=== PATIENT | female | born 1975 ===

== ENCOUNTER 2023-07-21 15:44 | Emergency (ER) | payer OTHER, SELFPAY ==
--- NOTE | 2023-07-21 | ECG_ITS ---
Test Reason : CX PAIN Blood Pressure : / mmHG Vent. Rate : 118 BPM Atrial Rate : 118 BPM P-R Int : 150 ms QRS Dur : 072 ms QT Int : 308 ms P-R-T Axes : 050 034 051 degrees QTc Int : 431 ms Sinus tachycardia Nonspecific T wave abnormality Abnormal ECG No previous ECGs available Referred By: Generic ED Physician Electronically Signed By:Bari Casey
--- NOTE | ~2023-07-21 | CT_ITS ---
EXAMINATION: CT ANGIOGRAM OF THE CHEST; CONTRAST-ENHANCED CT OF THE ABDOMEN AND PELVIS INDICATION: History of lymphoma, weight loss, fever, chest pain, shortness of breath COMPARISON: None TECHNIQUE: 85 mL Omnipaque 350 IV contrast was utilized. Multidetector helical imaging was performed through the chest per PE protocol. Coronal, sagittal, and MIP images of the chest were created. In addition, multidetector helical imaging was performed through the abdomen and pelvis. Coronal and sagittal reformatted images were created at the technologist workstation. DOSE LOWERING TECHNIQUES: This CT examination was performed using dose optimization techniques as appropriate, variously including the following: - Automated exposure control - Adjustment of mA and/or kV according to patient size (this includes techniques or standardized protocols for targeted exams were dose is matched to indication/reason for exam; i.e. extremities or head) - Use of iterative reconstruction technique DLP: 532 mGy-cm FINDINGS: Chest: There is suboptimal assessment for pulmonary emboli in some vessels due to suboptimal bolus timing. No central or segmental pulmonary embolus is seen. Aorta appears unremarkable. There is a 5 mm nodule in the left upper lobe on image 275/501. There is a somewhat irregularly-shaped nodule in the right lower lobe measuring up to approximately 6 mm on image 404/501. No regions of consolidation bilaterally. The visualized thyroid gland is unremarkable. No discrete lymphadenopathy is seen. Cardiac size is within normal limits; no pericardial effusion. No axillary lymphadenopathy is present. Abdomen/Pelvis: The liver is homogeneous in attenuation without intrahepatic biliary ductal dilatation. The gallbladder is distended without appreciable wall thickening. Scattered internal hyperdensities in the gallbladder favor gallstones. The spleen appears borderline enlarged. Pancreas and adrenal glands are within normal limits. No hydronephrosis or obstructing calculus bilaterally. There is a 0.3 cm calculus in the upper left kidney. Few bilateral renal cysts are noted, largest in the right kidney measuring up to approximately 10 cm; no follow-up recommended. The urinary bladder is mildly distended and grossly unremarkable. There is a cystic structure in the left adnexa measuring up to 5.6 cm. The small and large bowel are unremarkable without evidence of obstruction or pericolonic inflammatory change. Appendix appears collapsed, containing a couple appendicoliths. No free fluid or free air is identified. The vascular structures are unremarkable. Scattered mesenteric and retroperitoneal lymph nodes are present, a few of which measure near the upper limits of normal in size. No acute osseous findings. CT/CT abdomen pelvis w IV con IMPRESSION: 1. No central or segmental pulmonary embolus identified. 2. Cholelithiasis. If there is clinical concern for cholecystitis, this would be better assessed with ultrasound. 3. Left adnexal cystic structure measuring up to 5.6 cm. Findings likely represent a probable benign cyst. Recommend followup ultrasonography in 3-6 months. 4. Left upper lobe 5 mm lung nodule and right lower lobe 6 mm nodule. These are nonspecific, and no prior study is available for comparison. If chronic stability cannot be established through comparison with outside prior imaging, follow-up chest CT in 3-6 months is recommended. 5. Borderline splenomegaly. 6. Scattered mesenteric and retroperitoneal lymph nodes, a few of which measure near the upper limits of normal in size. These are of uncertain clinical significance given the patient's history of lymphoma and absence of prior studies for comparison. Attention on follow-up is recommended.
--- NOTE | ~2023-07-21 | XR_ITS ---
EXAMINATION: XR CHEST CLINICAL INFORMATION: Cough, chest pain COMPARISON: None available. TECHNIQUE: 2 views of the chest were obtained. 4:15 PM FINDINGS: The lungs are well expanded and clear. No focal consolidation, interstitial pulmonary edema or pneumothorax. Extensive calcification in the right paratracheal region and right hilar region is related to old calcified granulomatous disease. Heart size is normal. There is no pleural effusion. No acute osseous abnormality. XR/XR chest 2V IMPRESSION: No acute cardiopulmonary disease.
[2023-07-21 16:02] VITALS: BP 129/80; PULSE 118; RESP 16; TEMP 36.3; O2SAT 100; BMI 29.8
--- NOTE | 2023-07-21 16:04 | ED.GENADULT ---
HPI - General Adult General Chief complaint: Chest Pain Stated complaint: Chest pain/difficulty breathing Time Seen by Provider: 07/21/23 23:49 Source: patient and bell valet Mode of arrival: ambulatory Limitations: language barrier History of Present Illness HPI narrative: 47-year-old female with a history of non-Hodgkin's lymphoma status post chemotherapy currently in remission (diagnosed in 2007 in [place]) presents the ER with 1 month of fatigue, URI symptoms, intermittent fever, night sweats, weight loss. Patient reports 14 lb weight loss. Patient does not have a primary care doctor. Went to urgent care 2 weeks ago had negative viral testing and chest x-ray discharged home with supportive measures. Reports continued symptoms now having chest pressure, palpitations and shortness of breath. No leg swelling or leg pain. Related Data Previous Rx's Medication Instructions Recorded codeine 10 mg-guaifenesin 100 mg/5 10 ml PO Q6H PRN cough #237 mL 07/22/23 mL oral liquid Allergies Allergy/AdvReac Type Severity Reaction Status Date / Time No Known Allergies Allergy Verified 07/21/23 16:02 Review of Systems Review of Systems: Yes all other systems are reviewed and are negative Constitutional: Constitutional: Reports no additional constitutional complaints, Reports body ache(s), Denies chills, Reports fatigue, Reports fever(s), Denies headache(s), Reports night sweats, Denies weakness and Reports weight loss Eyes: Eyes: Reports no additional eye complaints and Denies change in vision ENT: Reports system reviewed and no additional complaints, except as documented, Denies dizziness, Denies headache(s), Reports nasal congestion, Denies nasal discharge, Denies neck pain and Reports sore throat Cardiovascular: Cardiovascular: Reports no additional cardiovascular complaints, Reports chest pain, Denies leg edema and Reports dyspnea Respiratory: Respiratory: Reports no additional respiratory complaints, Reports cough and Reports dyspnea Gastrointestinal: Gastrointestinal: Reports no additional gastrointestinal complaints, Denies abdominal pain, Denies diarrhea, Reports nausea and Denies vomiting Genitourinary: Genitourinary: Reports no additional female genitourinary complaints and Denies urinary incontinence Musculoskeletal: Musculoskeletal: Reports no additional musculoskeletal complaints, Denies back pain, Denies arthralgias, Denies joint swelling, Denies neck pain, Denies numbness and Denies tingling Integumentary/Breasts: Skin/Breast: Reports system reviewed and no additional complaints, except as docu and Denies rash Neurologic: Reports system reviewed and no additional complaints, except as documented, Denies Abnormal speech present, Denies dizziness, Denies headache(s), Denies numbness, Denies tingling and Denies weakness Endocrine: Endocrine: Reports fatigue [facility] Past Medical History Attestation statement: The following information was validated with the patient. Source: old records reviewed and nursing notes reviewed Social History Social History Smoked in Last 30 Days: No Advance Directives: No Advance Directives Information Provided: Yes Patient : No Physical Exam ED Vital Signs: Vital Signs - 24 hr 07/21/23 16:02 07/21/23 23:52 07/22/23 02:51 Temperature 97.4 F 97.9 F 98.0 F Pulse Rate 118 H 113 H 75 Respiratory Rate 16 16 16 Blood Pressure 129/80 134/68 96/61 Pulse Oximetry 100 98 98 Oxygen Delivery Method Room Air Room Air Room Air BMI result Body Mass Index 29.8 Const General: cooperative, healthy appearing, comfortable and no acute distress Orientation/consciousness: patient oriented x3 Limitations: no limitations HENMT Head: Yes normal to inspection Ears: hearing grossly normal bilaterally and TM's normal bilaterally General nose exam: Normal external nose present Face and sinus: Yes normal facial exam Mouth: Normal oral and palatal mucosa present Throat: Yes posterior oropharynx normal, Yes tonsils normal and Yes uvula midline Eyes Other: Scleral icterus General: appearance normal, both eyes and all related structures Pupils: Equal, round and reactive pupils present Neck Neck: Yes normal visual inspection, Yes full ROM, Yes no lymphadenopathy and Yes no meningeal signs Chest Chest palpation & inspection: normal inspection of the chest Resp Effort & Inspection: normal respiratory effort Auscultation: clear to auscultation bilaterally Cardio Rate: tachycardic Rhythm: regular rhythm Peripheral pulses: Peripheral pulses 2+ throughout GI Inspection: Yes normal to inspection Palpation (GI): Soft to palpation and nontender Auscultation: normal bowel sounds Back/Spine/Pelvis Thoracic/Lumbar Spine: thoracic and lumbar spine normal to inspection Skin General skin exam: no rashes or lesions noted Neuro General: patient oriented x3, no meningeal signs, no focal motor deficits and normal sensation to monofilament Cranial nerves: Yes Equal, round and reactive pupils present Cognition (Neuro): normal cognition Speech: No Abnormal speech present Gait exam (Neuro): Normal gait present Motor exam (neuro): 5/5 motor strength present throughout Extrem General: Yes normal to inspection, Yes no pedal edema and Yes no calf tenderness Course Course Course Narrative: RME performed by Cathryn Boyle PA-C. Patient is a 47 year old assigned female at presenting to the emergency department with congestion and chest pain x 1 week. Detailed physical exam and review of systems are deferred to the dentistry professor. Labs, imaging, and swabs ordered. Patient placed back in the waiting room pending room availability and results. Reevaluation(s) Reevaluation #1: [id number]-Sign out to Dr Kelly pending CT scans Medications Administered Discontinued Medications Generic Name Dose Route Start Last Admin Trade Name Freq PRN Reason Stop Dose Admin Sodium Chloride 1,000 mls @ 999 mls/hr 07/22/23 00:13 07/22/23 01:55 Ns IV 07/22/23 01:13 Infused .Q1H1M STA Infusion Iohexol 85 ml 07/22/23 01:03 07/22/23 01:03 Iohexol 350 Mg/Ml 100 Ml Infus..Btl IV 07/22/23 01:04 85 ml ONCE ONE Administration Medical Decision Making Medical Decision Making [facility] Narrative: 47-year-old female with a history of non-Hodgkin's lymphoma status post chemotherapy currently in remission (diagnosed in 2007 in [place]) presents the ER with 1 month of fatigue, URI symptoms, intermittent fever, night sweats, weight loss. Patient reports 14 lb weight loss. Patient does not have a primary care doctor. Went to urgent care 2 weeks ago had negative viral testing and chest x-ray discharged home with supportive measures. Reports continued symptoms now having chest pressure, palpitations and shortness of breath. No leg swelling or leg pain. On exam has scleral icterus, tachycardia but no other focal finding. D/t history I am concerned for reoccurrence of disease Will need labs, EKG, viral testing Had CXR in triage-will need CT chest/abdomen/pelvis Differential Diagnosis Differential Diagnoses: The differential diagnosis associated with the presentation includes lymphoma, pna, viral syndrome, pe low concern for acs Admission/Observation Consideration of admission/observation: Escalation of care including admission/observation considered Lab Data [facility] Lab Attestation statement: I reviewed the patient's lab results. Labs show a macrocytic anemia, elevated total bili 07/21/23 16:01 07/21/23 16:01 Labs: Lab Results 07/21/23 Range/Units 16:01 WBC 11.0 H (4.8-10.8) X10*3/uL RBC 2.22 L (4.20-5.50) X10*6/uL Hgb 7.9 L (12.0-16.0) g/dl Hct 22.8 L (37.0-47.0) % MCV 102.7 H (80.0-98.0) fL MCH 35.6 H (27.0-33.0) pg MCHC 34.6 (31.0-35.0) g/dl RDW 20.9 H (11.0-16.0) % Plt Count 379 (160-400) X10*3/uL MPV 10.1 (9.4-12.3) fL Immature Gran % (Auto) 3.1 H (0.0-0.4) % Neut % (Auto) 64.4 (45-73) % Lymph % (Auto) 22.6 (20-40) % [place] % (Auto) 7.5 (2-11) % Eos % (Auto) 1.4 (0-4) % Baso % (Auto) 1.0 (0-2) % Lymph # (Auto) 2.5 (1.2-4.9) X10*3/uL [place] # (Auto) 0.8 (0.1-1.2) X10*3/uL Eos # (Auto) 0.2 (0.0-0.4) X10*3/uL Baso # (Auto) 0.1 (0.0-0.2) X10*3/uL Abs Immat Gran (auto) 0.34 H (0.00-0.03) X10*3/uL Absolute Neuts (auto) 7.1 (2.0-8.3) x10*3/uL Absolute Nucleated RBC 0.110 H (0.0-0.012) X10*3/uL Nucleated RBC % (auto) 1.0 H (0.0-0.2) /100WBC Sodium 142 (135-145) mmol/L Potassium 3.6 (3.3-5.1) mmol/L Chloride 107 (96-108) mmol/L Carbon Dioxide 27 (22-29) mmol/L Anion Gap 12 (12-20) BUN 16 (9-16) mg/dL Creatinine 0.69 (0.5-1.4) mg/dL Estim Creat Clear Calc 93.8 Estimated GFR > 60 Random Glucose 94 (60-115) mg/dL Calcium 9.2 (8.4-10.2) mg/dL Total Bilirubin 3.6 H (0.0-1.0) mg/dL AST 15 (5-31) U/L ALT 26 (0-31) U/L Alkaline Phosphatase 105 (39-117) U/L Troponin I High Sens < 2.7 (<3.5-17.0) ng/L Total Protein 6.3 L (6.5-8.0) g/dL Albumin 4.2 (3.5-5.0) g/dL COVID-19 (FANNY) Negative (Negative) COVID-19 Clin Com See Note Influenza Type A (HANNA) Negative (Negative) Influenza Type B (HANNA) Negative (Negative) Influenza A & B Note See Note Independent Interpretation I performed an independent interpretation of an: EKG, Plain X-Ray and CT Scan Interpretation: I independently reviewed the EKG which shows sinus tachycardia with a rate of 118, normal [place], normal QRS, nonspecific ST changes I independently reviewed the chest x-ray and agree with the radiologist's Radiology Impression Discussion of test interpretation with radiology: I have reviewed the radiologist's reading. Radiologist Impression: [place] [id number] XRay Report Signed Patient: FILOMENA ESTRADA MR#: [id number] : 1975 Acct:[id number] Age/Sex: 47 / F ADM Date: 07/21/23 Loc: .ED Attending Dr: Ordering Physician: Cathryn Boyle Date of Service: 07/21/23 Procedure(s): XR chest 2V Accession Number(s): [id number] cc: Monster Lara MD; Cathryn Boyle~ EXAMINATION: XR CHEST CLINICAL INFORMATION: Cough, chest pain COMPARISON: None available. TECHNIQUE: 2 views of the chest were obtained. 4:15 PM FINDINGS: The lungs are well expanded and clear. No focal consolidation, interstitial pulmonary edema or pneumothorax. Extensive calcification in the right paratracheal region and right hilar region is related to old calcified granulomatous disease. Heart size is normal. There is no pleural effusion. No acute osseous abnormality. XR/XR chest 2V IMPRESSION: No acute cardiopulmonary disease. Prescription Management I considered prescription management with: Antibiotic Chronic Conditions Patient?s care impacted by: Cancer Discharge Plan Discharge Clinical Impression: Chest pain, Chronic bronchitis Patient Disposition: Home, Self-Care Instructions: Chronic Bronchitis (ED), Chest Wall Pain (ED) Additional Instructions: Take cough syrup as prescribed You have left ovarian cyst follow-up with your PCP You have anemia follow with your PCP for further evaluation Prescriptions: New codeine-guaifenesin 10-100 mg/5 mL liquid 10 ml PO Q6H PRN (Reason: cough) Qty: 237 0RF Referrals: Monster Lara MD [Primary Care Provider] - 5 days Print Language: Cook Islander
[2023-07-21 16:07] LABS: MANUAL DIFF FLAG NO
[2023-07-21 16:25] LABS: Alanine Aminotransferase 26 U/L (0-31); Albumin Level 4.2 g/dL (3.5-5.0); Alkaline Phosphatase 105 U/L (39-117); Anion Gap 12 (12-20); Aspartate Amino Transferase 15 U/L (5-31); Bilirubin Total 3.6 mg/dL (0.0-1.0); Blood Urea Nitrogen 16 mg/dL (9-16); Calcium 9.2 mg/dL (8.4-10.2); Carbon Dioxide 27 mmol/L (22-29); Chloride 107 mmol/L (96-108); Creatinine Clr Calc Pharmacy 93.8; Estimated Glomerular Filt Rate > 60; Glucose Random 94 mg/dL (60-115); Potassium 3.6 mmol/L (3.3-5.1); Sodium 142 mmol/L (135-145); Total Protein 6.3 g/dL (6.5-8.0)
[2023-07-21 16:28] LABS: Basophils Absolute Auto 0.1 X10*3/uL (0.0-0.2); Eosinophils Absolute Auto 0.2 X10*3/uL (0.0-0.4); Eosinophils Percent Auto 1.4 % (0-4); Hematocrit 22.8 % (37.0-47.0); Hemoglobin 7.9 g/dl (12.0-16.0); Imm Gran Abs Auto 0.34 X10*3/uL (0.00-0.03); Imm Gran Pct Auto 3.1 % (0.0-0.4); Lymphocytes Absolute Auto 2.5 X10*3/uL (1.2-4.9); Lymphocytes Percent Auto 22.6 % (20-40); Mean Corpuscular HGB Conc 34.6 g/dl (31.0-35.0); Mean Corpuscular Hemoglobin 35.6 pg (27.0-33.0); Mean Corpuscular Volume 102.7 fL (80.0-98.0); Mean Platelet Volume 10.1 fL (9.4-12.3); Monocytes Absolute Auto 0.8 X10*3/uL (0.1-1.2); Monocytes Percent Auto 7.5 % (2-11); Neutrophils Absolute Auto 7.1 x10*3/uL (2.0-8.3); Neutrophils Percent Auto 64.4 % (45-73); Platelet Count 379 X10*3/uL (160-400); Red Blood Count 2.22 X10*6/uL (4.20-5.50); Red Cell Distribution Width 20.9 % (11.0-16.0)
[2023-07-21 16:29] LABS: IDNOW Serial# 9DB6401D; Influenza A Negative (Negative); Influenza B2 Negative (Negative)
[2023-07-21 16:33] LABS: COVID-19 Test Negative (Negative); IDNOW Serial# 58CA691E
[2023-07-21 16:36] LABS: Troponin-I High Sensitivity < 2.7 ng/L (<3.5-17.0)
[2023-07-21 23:52] VITALS: BP 134/68; PULSE 113; RESP 16; TEMP 36.6; O2SAT 98
[2023-07-22] MEDS: 0.9 % Sodium Chloride 1,000 ML 999 ML IV (00:20)
[2023-07-22] MEDS: iohexoL 350 MG/ML 100 ML INFUS..BTL 85 ML IV (01:03)
[2023-07-22 02:51] VITALS: BP 96/61; PULSE 75; RESP 16; TEMP 36.7; O2SAT 98
[2023-07-22] MEDS: guaiFEN/Codeine SF 200/20/10ML 10 ML LIQUID PO (03:50)
== END 2023-07-22 03:56 | disposition home or self-care (01) ==
PROVIDERS: Internal Medicine; Emergency Provider Emergency Medicine; PCP Internal Medicine
DX: J42 Unspecified chronic bronchitis (principal); R07.9 Chest pain, unspecified; Z11.52 Encounter for screening for COVID-19; D64.9 Anemia, unspecified; R63.4 Abnormal weight loss; Z68.29 Body mass index [BMI] 29.0-29.9, adult
CPT/HCPCS: 71046; 71275; 74177; 80053; 84484; 85025; 87502; 87635; 93005; 96360; 96361; 99284; 99285; Q9967

== ENCOUNTER → 2023-07-21 15:55 | Outpatient (BNV) | payer OTHER, SELFPAY | PROVIDERS: Emergency Provider Emergency Medicine; PCP Internal Medicine; Visit Provider Internal Medicine Cardiovascular Disease | DX: R07.9 Chest pain, unspecified (principal) | CPT/HCPCS: 93010 ==

== ENCOUNTER 2023-07-28 14:07 | Outpatient (REF) | payer MEDICAID, SELFPAY ==
[2023-07-28 16:10] LABS: Retic HGB Equivalent 36.5 pg (30.0-35.0); Reticulocytes Absolute 0.293 X10*6/uL (0.026-0.095)
[2023-07-28 16:24] LABS: Rheumatoid Factor < 13.0 IU/mL (<15.0)
[2023-07-28 16:26] LABS: RET ABN SCTR 1
[2023-07-28 16:33] LABS: Alanine Aminotransferase 17 U/L (0-31); Albumin Level 4.2 g/dL (3.5-5.0); Alkaline Phosphatase 95 U/L (39-117); Aspartate Amino Transferase 15 U/L (5-31); Bilirubin Direct 0.5 mg/dL (0.0-0.5); Bilirubin Total 2.1 mg/dL (0.0-1.0); Iron 74 mcg/dL (30-160); Lactate Dehydrogenase 403 U/L (122-220); Percent Iron Saturation 27 % (15-50); Total Iron Binding Capacity 273 mcg/dL (228-428); Total Protein 6.3 g/dL (6.5-8.0); Unsaturated Iron Binding 199 ug/dL
[2023-07-28 16:40] LABS: Ferritin 603 ng/mL (10-250)
[2023-07-28 16:42] LABS: Erythrocyte Sedimentation Rate 36 MM/HR (0-20)
[2023-07-28 16:52] LABS: Folate 9.2 ng/mL (> or = 4.0); Vitamin B12 966 pg/mL (200-900)
[2023-07-29 04:08] LABS: HBc Num1 0.05 S/CO (0.00-0.79); HBsAGNum1 0.31 S/CO (0.00-0.99); Hepatitis A Antibody IgM 0.13 Index (0-0.79); Hepatitis B Core Antibody Nonreactive (Nonreactive); Hepatitis B Surface Antigen Negative (Negative); ~Hepatitis A Antibody IgM Nonreactive (Nonreactive)
[2023-07-29 05:49] LABS: HBS Num1 0.03 mIU/mL (0-7.99); HIV AB/AG Nonreactive (Nonreactive); HIV Num 1 0.06 S/CO (0.00-0.99); ~HepC Num1 0.03 S/CO (0.00-0.79); ~Hepatitis B Surface Antibody NONREACTIVE (Nonreactive); ~Hepatitis C Antibody Nonreactive (Nonreactive)
[2023-08-03 08:44] LABS: Anti Nuclear Antibody Screen NEGATIVE (NEGATIVE)
== END 2023-07-28 14:08 | disposition home or self-care (01) ==
LOC: HO.HHCL 14:07
PROVIDERS: Visit Provider Internal Medicine
DX: D64.9 Anemia, unspecified (principal); R59.0 Localized enlarged lymph nodes
CPT/HCPCS: 36415; 80076; 82607; 82728; 82746; 83540; 83615; 85045; 85652; 86038; 86431; 86704; 86706; 86709; 86803; 87340; 87389

== ENCOUNTER 2023-08-04 15:27 | Outpatient (REF) | payer MEDICAID, SELFPAY ==
[2023-08-04 16:19] LABS: MANUAL DIFF FLAG NO
[2023-08-04 16:59] LABS: Basophils Absolute Auto 0.1 X10*3/uL (0.0-0.2); Basophils Percent Auto 1.5 % (0-2); Eosinophils Absolute Auto 0.1 X10*3/uL (0.0-0.4); Eosinophils Percent Auto 2.1 % (0-4); Hematocrit 26.3 % (37.0-47.0); Imm Gran Abs Auto 0.02 X10*3/uL (0.00-0.03); Imm Gran Pct Auto 0.4 % (0.0-0.4); Lymphocytes Absolute Auto 1.7 X10*3/uL (1.2-4.9); Mean Corpuscular HGB Conc 34.2 g/dl (31.0-35.0); Mean Corpuscular Hemoglobin 37.2 pg (27.0-33.0); Mean Corpuscular Volume 108.7 fL (80.0-98.0); Mean Platelet Volume 10.8 fL (9.4-12.3); Monocytes Absolute Auto 0.5 X10*3/uL (0.1-1.2); Neutrophils Absolute Auto 2.5 x10*3/uL (2.0-8.3); Platelet Count 244 X10*3/uL (160-400); Red Blood Count 2.42 X10*6/uL (4.20-5.50); Red Cell Distribution Width 19.5 % (11.0-16.0); White Blood Count 4.8 X10*3/uL (4.8-10.8)
== END 2023-08-04 15:28 | disposition home or self-care (01) ==
LOC: HO.HHCL 15:27
PROVIDERS: Visit Provider Internal Medicine
DX: D64.9 Anemia, unspecified (principal)
CPT/HCPCS: 36415; 85025

== ENCOUNTER → 2023-08-14 11:20 | Outpatient (BNV) | payer MEDICAID, SELFPAY | PROVIDERS: PCP Internal Medicine; Visit Provider Internal Medicine Medical Oncology | DX: C85.90 Non-Hodgkin lymphoma, unspecified, unspecified site (principal) | CPT/HCPCS: 99204; 99213 ==

== ENCOUNTER 2023-08-21 16:05 | Outpatient (REF) | payer MEDICAID, SELFPAY ==
[2023-08-21 18:04] LABS: TSH reflex Free T4 1.15 uIU/mL (0.32-4.0)
== END 2023-08-21 16:06 | disposition home or self-care (01) ==
LOC: HO.HHCL 16:05
PROVIDERS: Visit Provider Internal Medicine
DX: Z86.39 Personal history of other endocrine, nutritional and metabolic disease (principal)
CPT/HCPCS: 36415; 84443

== ENCOUNTER 2023-09-15 11:27 | Day surgery (SDC) | payer MEDICAID, SELFPAY ==
[2023-09-15] VITALS (11 sets, daily range): BP systolic 105–130; BP diastolic 64–81; PULSE 72–101; RESP 16–18; TEMP 36.2–36.3; O2SAT 97–99; BMI 31.1
--- NOTE | ~2023-09-15 | CT_ITS ---
PROCEDURE: CT GUIDED BIOPSY, BONE CLINICAL INFORMATION: History of lymphoma. PET avid lymphadenopathy COMPARISON: None available. TECHNIQUE/FINDINGS: Medications for conscious sedation: The patient received intravenous conscious sedation under my direct supervision. A registered nurse monitored the patient and the patient's vital signs throughout the procedure. The total sedation was 30 minutes utilizing fentanyl and Versed for good effect. This CT examination was performed using dose optimization techniques as appropriate, variously including the following: *Automated exposure control *Adjustment of mA and/or kV according to patient size (this includes techniques or standardized protocols for targeted exams where dose is matched to indication/reason for exam; i.e. extremities or head) *Use of iterative reconstruction technique DLP: 78 mGy-cm Patient was placed prone on the CT table. Limited CT of the pelvis was performed. A site overlying the left iliac bone was selected, marked and sterilely prepped and draped. Following the administration of 1% lidocaine and deep lidocaine for local anesthesia, the left iliac bone was accessed with a 13-gauge trocar needle. Bone marrow aspirate was performed and samples were placed into Vacutainers as per protocol. Then, the trocar needle was used to obtain a bone marrow biopsy. The specimen was deemed to be adequate placed in formalin. Post biopsy images obtained do not demonstrate any evidence of bleeding or other complication. A dressing was applied. Patient tolerated procedure well. CT/CT biopsy asp core bone marrow IMPRESSION: Bone marrow biopsy left iliac bone as detailed above
[2023-09-15 12:10] LABS: UPreg QC Valid YES; Urine Pregnancy NEGATIVE (NEGATIVE)
[2023-09-15 14:51] LABS: Bone Marrow SEE SEPARATE REPORT
== END 2023-09-15 16:57 | disposition home or self-care (01) ==
PROVIDERS: Physician Assistant Surgical; Student in an Organized Health Care Education/Training Program; PCP Internal Medicine; Visit Provider Internal Medicine Medical Oncology
PROC: (CPT 38221; principal; 2023-09-15 13:00)
DX: C85.90 Non-Hodgkin lymphoma, unspecified, unspecified site (principal); E07.9 Disorder of thyroid, unspecified; Z79.899 Other long term (current) drug therapy; Z98.890 Other specified postprocedural states
CPT/HCPCS: 36415; 38222; 81025; 88184; 88185; 88237; 88264; 88305; 88311; 88313; 99152; J0665; J1642; J2250; J2310; J3010

== ENCOUNTER → 2023-09-15 12:42 | Outpatient (BNV) | payer MEDICAID, SELFPAY | PROVIDERS: PCP Internal Medicine; Visit Provider Student in an Organized Health Care Education/Training Program | DX: R59.9 Enlarged lymph nodes, unspecified (principal); Z85.72 Personal history of non-Hodgkin lymphomas | CPT/HCPCS: 38222; 72192; 77012; 99152 ==

== ENCOUNTER 2023-10-03 15:06 | Outpatient (REF) | payer MEDICAID, SELFPAY ==
--- NOTE | ~2023-10-03 | MM_ITS ---
EXAMINATION: MM SCREENING DIGITAL BREAST TOMOSYNTHESIS, BILATERAL CLINICAL INFORMATION: Screening. Asymptomatic. COMPARISON: Mammography: There are no prior mammograms for comparison. TECHNIQUE: Digital breast tomosynthesis is performed in both the craniocaudal and mediolateral oblique views along with computer-aided detection (CAD). Synthesized 2D images are generated from the tomosynthesis. FINDINGS: There are scattered areas of fibroglandular density (ACR BI-RADS breast composition Category b). There are no significant masses, abnormal calcifications, or other abnormalities. MM/MM tomosynthesis screening BI IMPRESSION: No mammographic evidence of malignancy. ASSESSMENT: BI-RADS BI-RADS 1 - Negative RECOMMENDATION: Routine annual mammography screening. 1 year F/U This examination should not preclude the clinical evaluation of a suspicious palpable abnormality. This patient's information was entered into a reminder system with a target due date for their next mammogram.
== END 2023-10-03 15:07 | disposition home or self-care (01) ==
LOC: HO.MAMMO 15:06
PROVIDERS: PCP Internal Medicine; Visit Provider Internal Medicine
DX: Z12.31 Encounter for screening mammogram for malignant neoplasm of breast (principal)
CPT/HCPCS: 77063; 77067

== ENCOUNTER → 2023-10-03 16:15 | Outpatient (BNV) | payer MEDICAID, SELFPAY | PROVIDERS: PCP Internal Medicine; Visit Provider Radiology Diagnostic Radiology | DX: Z12.31 Encounter for screening mammogram for malignant neoplasm of breast (principal) | CPT/HCPCS: 77063; 77067 ==

== ENCOUNTER 2023-10-17 15:42 | Outpatient (REF) | payer MEDICAID, SELFPAY ==
--- NOTE | ~2023-10-17 | US_ITS ---
EXAMINATION: US PELVIS CLINICAL INFORMATION: Left adnexal cyst COMPARISON: CT scan 07/22/2023 TECHNIQUE: Ultrasound of the pelvis is performed using both transabdominal and transvaginal transducers along with Doppler. Transvaginal imaging is performed due to inadequate visualization transabdominally. FINDINGS: Uterus: The patient had a partial hysterectomy at age 31. The uterus measures 6.7 x 2.5 x 3.1 cm. There is a normal thin endometrial stripe. Multiple nabothian cysts are seen within the cervix, a normal finding. Fluid is seen within the endometrial canal. Adnexa: The adnexa are obscured by bowel gas. The ovaries are not seen,? Prior oophorectomy. Previously seen 5.6 cm cystic structure in the left adnexa seen on CT scan 07/22/2023 is not demonstrated on the current study. US/US pelvic and transvaginal IMPRESSION: 1. The patient had a partial hysterectomy at age 31. 2. The adnexa are obscured by bowel gas. The ovaries are not seen,? Prior oophorectomy. Previously seen 5.6 cm cystic structure in the left adnexa on CT scan 07/22/2023 is not demonstrated on the current study.
== END 2023-10-17 15:43 | disposition home or self-care (01) ==
LOC: HO.US 15:42
PROVIDERS: PCP Internal Medicine; Visit Provider Internal Medicine Medical Oncology
DX: N94.9 Unspecified condition associated with female genital organs and menstrual cycle (principal)
CPT/HCPCS: 76830; 76856

== ENCOUNTER 2023-10-31 11:12 | Outpatient (AMB) | payer MEDICAID, SELFPAY ==
--- NOTE | 2023-10-31 11:21 | MHC.OFFVIS ---
Vital Signs 10/31/23 11:30 Height 5 ft 2 in Weight 170 lb BMI 31.1 BP 150/73 H Blood Pressure Location Lt brachial Position Sitting Pulse 93 Intake Visit Reasons: excisional bx of one of the cervical lymph nodes Intake Note: Patient is seen in office for evaluation and possible excisional biopsy of one cervical lymph node. Pt c/o: Dx with non-hodking CA on 2018 stage 4, had PET scan done and was told she needs a bx done, admits to chills, weight loss, shortness of breath, anemia 7.5 and is seen now a armature connector, feels a lump on the neck Desktop Analyst Required: Yes Desktop Analyst Language: Human Resources Hr Representative Name: Martha GOODSON Information Interpreted: non-clinical & clinical Accompanied by: Self / Same As Patient Allergies No Known Allergies Allergy (Verified 10/23/23 15:12) Medication List - Last Reconciled 11/03/23 by Connor Carlos MD codeine-guaifenesin 10-100 mg/5 mL 10 mL PO Q6H PRN levothyroxine (Synthroid) 25 mcg PO DAILY HPI Comments Details: 48-year-old female patient presenting for evaluation of a possible lymph node biopsy. She has a previous history of non-Hodgkin's lymphoma, stage IV diagnosed in 2007 and treated in [place]. Records from this previous treatment is not available to time of this visit. She was well until recently when she developed symptoms of fever, chills, weight loss and shortness of breath. She was found to have anemia with a hemoglobin of 7.5. She reports feeling a lump in the neck on self examination. She underwent evaluation with PET scan, the results of which are not available at the time of this visit. She denies any other palpable lymph nodes. [facility] Medical History Thyroid disease Social History Household Members: Children Patient Tobacco Use Status: Never used Tobacco service: No Current occupational status: employed and unemployed Review of Systems Const All systems reviewed & are unremarkable except as noted in HPI and below Reports chills, Reports poor appetite and Reports weight loss Physical Exam Vital Signs: Last Vital Signs Pulse 93 10/31/23 11:30 BP 150/73 H 10/31/23 11:30 BMI result Body Mass Index 31.1 Const General: cooperative and no acute distress Nutritional Appearance: well nourished Orientation/consciousness: patient oriented x3 Limitations: no limitations HEENT Head: Yes normocephalic and Yes atraumatic Ears: hearing grossly normal bilaterally Neck Other: Examination of both cervical and supraclavicular regions revealed no definite palpable adenopathy to my examination. No glandular in enlargement is appreciated. Chest Other: Left axilla reveals a large mobile lymph node which is mildly tender to palpation. This is in the anterior level 1 region. No lymph nodes palpable in the right axilla. Chest/axillae images: 1. Palpable lymph node left axilla Resp Effort & Inspection: normal respiratory effort, no audible wheezes, no cough and no respiratory distress Cardio Jugular venous distension: no JVD GI Inspection: Yes normal to inspection Skin Other: Warm, dry, no rash Neuro General: patient oriented x3 Extrem General: Yes no clubbing, cyanosis or edema Assessment & Plan Assessment & Plan (1) Non-Hodgkins lymphoma: Code(s): C85.90 - Non-Hodgkin lymphoma, unspecified, unspecified site Category: Medical (2) Lymph node enlargement: Code(s): R59.9 - Enlarged lymph nodes, unspecified Category: Medical Plan 48-year-old female patient with a prior history of non-Hodgkin's lymphoma presenting with classic B symptoms and an enlarged lymph node in the left axilla. I can not clearly palpate any cervical lymphadenopathy on my examination. I recommended excision of this enlarged lymph node of the left axilla as a short-stay surgery. After discussion of the procedure, risks, and alternatives, she consents to the excision of the left axillary lymph node. Coding Level of Care Code New Pt Level 4 (91359) Diagnoses Non-Hodgkins lymphoma C85.90 Lymph node enlargement R59.9
[2023-10-31 11:30] VITALS: BP 150/73; PULSE 93; BMI 31.1
== END 2023-10-31 11:45 | disposition home or self-care (01) ==
PROVIDERS: PCP Internal Medicine; Referring Provider Internal Medicine Medical Oncology; Visit Provider Surgery
DX: C85.90 Non-Hodgkin lymphoma, unspecified, unspecified site (principal); R59.9 Enlarged lymph nodes, unspecified
CPT/HCPCS: 99204

== ENCOUNTER → 2023-10-31 11:12 | Outpatient (BNVA) | payer MEDICAID, SELFPAY | PROVIDERS: PCP Internal Medicine; Referring Provider Internal Medicine Medical Oncology; Visit Provider Surgery | DX: C85.90 Non-Hodgkin lymphoma, unspecified, unspecified site (principal); R59.9 Enlarged lymph nodes, unspecified | CPT/HCPCS: 99202 ==

== ENCOUNTER 2023-11-12 08:49 | Day surgery (SDC) | payer MEDICAID, SELFPAY ==
--- NOTE | 2023-11-10 15:31 | HO.ANESPROP2 ---
Documented by User: Ramona Rdz NP 11/10/23 15:33 HPI - Anesthesia Eval Consult details Narrative: 48yo F for Left Excision Lymph Node Axilla PMFSH Active Problems Active Problems: All Active Problems Lymph node enlargement (Acute) Non-Hodgkins lymphoma (Acute) Past Medical History Medical History (Updated 11/10/23 @ 15:32 by Ramona Rdz NP) Non-Hodgkins lymphoma Thyroid disease Social History Social History Household Members: Children Patient Tobacco Use Status: Never used Tobacco Use of substances other than those prescribed or required for medical reasons: No Are you DNR?: No Advance Directives: No Advance Directives Information Provided: Yes service: No Current occupational status: employed and unemployed Meds Allergies Allergy/AdvReac Type Severity Reaction Status Date / Time No Known Allergies Allergy Verified 10/23/23 15:12 Home Medications ?Medication ?Instructions ?Recorded ?Confirmed ?Last Taken ?Type levothyroxine 25 mcg tablet 25 mcg PO DAILY 08/14/23 11/12/23 Unknown History (Synthroid) levothyroxine 13 mcg capsule 13 mcg PO QAM 11/12/23 11/12/23 11/12/23 History (Tirosint) Exam Pertinent Lab Results Pertinent Lab Results: Laboratory Tests 10/23/23 15:12 WBC 7.0 Hgb 12.0 Hct 35.1 L Plt Count 225 Sodium 142 Potassium 3.8 Chloride 113 H Carbon Dioxide 25 BUN 16 Creatinine 0.79 Narrative Narrative: EKG 2023 Vent. Rate : 118 BPM Atrial Rate : 118 BPM P-R Int : 150 ms QRS Dur : 072 ms QT Int : 308 ms P-R-T Axes : 050 034 051 degrees QTc Int : 431 ms Sinus tachycardia Nonspecific T wave abnormality Abnormal ECG No previous ECGs available Assessment and Plan Assessment Anesthesia Assessment: Chart Reviewed Documented by User: Darshana Kang MD 11/12/23 12:25 PMFSH Past Medical History Medical History (Updated 11/10/23 @ 15:32 by Ramona Rdz NP) Non-Hodgkins lymphoma Thyroid disease Family History Family history of problems with anesthesia: No Surgical History History of Problems with Anesthesia: No Social History Social History Household Members: Children Patient Tobacco Use Status: Never used Tobacco Use of substances other than those prescribed or required for medical reasons: No Are you DNR?: No Advance Directives: No Advance Directives Information Provided: Yes service: No Current occupational status: employed and unemployed Meds Allergies Allergy/AdvReac Type Severity Reaction Status Date / Time No Known Allergies Allergy Verified 10/23/23 15:12 Home Medications ?Medication ?Instructions ?Recorded ?Confirmed ?Last Taken ?Type levothyroxine 25 mcg tablet 25 mcg PO DAILY 08/14/23 11/12/23 Unknown History (Synthroid) levothyroxine 13 mcg capsule 13 mcg PO QAM 11/12/23 11/12/23 11/12/23 History (Tirosint) Exam Airway Mallampati Class: II Neck ROM: Full Denture: Upper Assessment and Plan Assessment Anesthesia Assessment: Anesthesia Plan Discussed Final Anesthetic Review Family History of Problems with Anesthesia: No History of Problems with Anesthesia: No NPO: Yes ASA Class: II Final Preanesthetic Review: No Changes in Pt Med Stat, Meds/Allgs Chart Reviewed, Consent Obtained/Reviewed and Anes Risks/Benef Reviewed Patient Risk: Low Procedure Risk: Low Anesthetic Plan Anesthetic Plan: GA Disposition: Standard PACU
[2023-11-12] VITALS (7 sets, daily range): BP systolic 114–163; BP diastolic 75–91; PULSE 70–79; RESP 16–18; TEMP 36.1–36.7; O2SAT 97–100; BMI 32.2
[2023-11-12 09:27] LABS: UPreg QC Valid YES; Urine Pregnancy NEGATIVE (NEGATIVE)
[2023-11-12] MEDS: Lactated Ringers 1,000 ML 100 ML IVCONT (10:09)
--- NOTE | 2023-11-12 10:45 | MHC.SHP ---
Pre-Procedural Eval Section A - 24 Hr Update-Section A only Date of Service: 11/12/23 The patient is an INPATIENT: No Changes since office visit: Yes Patient answered all questions; No Cold of Flu in the past 2 weeks, No New Medical Problems and No Changes in Medication The patient has been examined within 24 hours of the surgical procedure. The History & Physical has been completed within 30 days and I have reviewed it.: Yes Section B - Complete if H&P > 30 days Chief Complaint: Enlarged lymph nodes,Non-Hodgkin lymphoma Allergies: Allergies Allergy/AdvReac Type Severity Reaction Status Date / Time No Known Allergies Allergy Verified 10/23/23 15:12 Plan Diagnosis/Plan: Unchanged I have reviewed the history and physical and performed a pertinent physical examination on my patient. No changes have occurred unless specified. Time Spent With Patient Time: Total time managing care of this patient today ____ minutes.
--- NOTE | 2023-11-12 12:59 | W.PM.OPN ---
Operative Note Operative Note Date of Service: 11/12/23 Narrative: Preoperative diagnosis: Left axillary lymphadenopathy Postoperative diagnosis: Same Procedure: Left axillary lymph node biopsy Surgeon: Connor Carlos MD Horse Breeder: Rossy Ryan PA-C<theresa>,</del> <del>Kaden</del> <del>Scotty,</del> <del>JEAN CARLOS</del> Anesthesia: General LMA Indications for procedure: 48-year-old female patient presenting with a prior history of non-Hodgkin's lymphoma now presenting with fever, chills, night sweats an enlarged lymph node in the left axilla. Operative findings: Moderately enlarged dark lymph node left axilla Specimen: Left axillary lymph node Estimated blood loss: Less than 2 mL Complications: None Procedure details: Patient was brought to the OR and placed in a supine position. After administering general anesthesia the patient's left axilla was prepped with ChloraPrep and draped in a sterile fashion. A surgical time-out was called and the consent confirmed. Patient received preoperative antibiotics and Venodyne boots were in place. Local anesthesia consisting of 0.5% Sensorcaine was infiltrated below the hairline of the left axilla. A curvilinear incision was then made with a scalpel and carried out through subcutaneous tissue, past the clavipectoral fascia into the axillary compartment. Gentle palpation of the axillary compartment revealed the enlarged lymph node. This was grasped with an Allis clamp. Electrocautery was then used to dissect around the enlarged lymph node. Hemostasis was assured at all times using electrocautery. The lesion was passed off the table and sent to pathology for further examination. The wounds were then irrigated with saline solution and suctioned dry. Wounds were again checked for hemostasis. Clavipectoral fascia was then reapproximated using interrupted 3-0 Polysorb sutures. Dermis was reapproximated using interrupted 3-0 Polysorb sutures. Skin was closed using a running subcuticular 4-0 Polysorb suture. Sterile dressings consisting of Steri-Strips, 2 x 2 gauze and Tegaderm were then applied. The patient tolerated the procedure well. Sponge, instrument, and needle counts reported as correct. The patient was transferred to PACU in stable condition.
== END 2023-11-12 15:27 | disposition home or self-care (01) ==
PROVIDERS: Nurse Practitioner; Pathology Anatomic Pathology & Clinical Pathology; PCP Internal Medicine; Visit Provider Surgery
PROC: (CPT 38500; principal; 2023-11-12 12:50)
DX: R59.9 Enlarged lymph nodes, unspecified (principal); C85.90 Non-Hodgkin lymphoma, unspecified, unspecified site; D64.9 Anemia, unspecified; E07.9 Disorder of thyroid, unspecified; R06.02 Shortness of breath; R68.83 Chills (without fever); R63.4 Abnormal weight loss; Z68.31 Body mass index [BMI] 31.0-31.9, adult; Z79.899 Other long term (current) drug therapy
CPT/HCPCS: 38525; 36415; 81025; 88184; 88185; 88305; J0690; J1885; J2250; J2405; J2704; J2795; J3010

== ENCOUNTER → 2023-11-12 08:49 | Outpatient (BNV) | payer MEDICAID, SELFPAY | PROVIDERS: PCP Internal Medicine; Visit Provider Surgery | DX: R59.9 Enlarged lymph nodes, unspecified (principal) | CPT/HCPCS: 38525 ==

== ENCOUNTER 2023-12-09 07:45 | Outpatient (AMB) | payer MEDICAID, SELFPAY ==
--- NOTE | 2023-12-09 08:01 | MHC.OFFVIS ---
Vital Signs 12/09/23 08:27 Height 5 ft 2 in Weight 170 lb 13.732 oz BMI 31.2 BP 120/72 Blood Pressure Location Rt brachial Position Sitting Pulse 92 Pulse Source Pulse Oximeter Pulse Oximetry (%) 97 Oxygen Delivery Method Room Air Intake Visit Reasons: joint pain Intake Note: New patient presents today for consult, internally referred by Dr Bennett Reports joint pains. Symptoms started approx a year ago. Has a history of Lymphoma. Mother has arthritis Has tried ibuprofen and tramadol Radioisotope Production Operator Required: Yes Radioisotope Production Operator Language: Social Worker School Name: [employer] Accompanied by: Self / Same As Patient Allergies No Known Allergies Allergy (Verified 12/09/23 08:33) Medication List - Last Reconciled 12/09/23 by Romelia Yusuf MD ibuprofen 800 mg PO Q8H PRN levothyroxine (Tirosint) 13 mcg PO QAM tramadol 50 mg PO Q6H PRN HPI Comments Details: This is a 48-year-old female who presents for evaluation of multiple joint pain. Of note patient has history of non-Hodgkin's lymphoma which was treated with R-CHOP back in 2007. She was recently re-evaluated by Dr. Bennett and deemed not to have recurrence of malignancy. She states that over the last year she has been having pain in her hands and feet. She has morning stiffness of her hands lasting 20-30 minutes. She takes ibuprofen as needed for her joint pain 4 to 5 times a week. She states that she has had chronic back pain for a long time and she takes tramadol only as needed. 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 This started approximately 9 months ago. Before that she used to work for [employer]. She denies any recent weight loss, denies any fevers or skin rashes. She is unaware of any family history of an autoimmune rheumatic disease. Denies any history of DVT/PE. She had 4 pregnancies and 4 children. 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 Female Reproductive History Menstrual Age of Menarche: 9 Total pregnancies: 4 Number of Living Children: 4 Review of Systems Const Denies fever(s) and Denies weight loss Musc Reports arthralgias, Denies joint swelling and Reports stiffness Physical Exam Vital Signs: Last Vital Signs Pulse 92 12/09/23 08:27 BP 120/72 12/09/23 08:27 Pulse Ox 97 12/09/23 08:27 Oxygen Delivery Method Room Air 12/09/23 08:27 BMI result Body Mass Index 31.2 Const General: cooperative, healthy appearing and comfortable Nutritional Appearance: overweight Orientation/consciousness: patient oriented x3 Limitations: no limitations HEENT Head: Yes normocephalic and Yes atraumatic Mouth: moist mucous membranes Resp Effort & Inspection: normal respiratory effort and able to speak in complete sentences Auscultation: clear to auscultation bilaterally Cardio Rate: regular rate Rhythm: regular rhythm Skin General skin exam: no rashes or lesions noted Neuro General: patient oriented x3 Extrem Other: Bilateral wrist tenderness and pain with full flexion and extension Left hand 1st through 5th MCP tenderness without swelling Left 2nd through 5th flexor tendon tenderness Left 2nd through 5th PIP tenderness without swelling No DIP tenderness Right hand 1st through 5th MCP tenderness Second through 5th flexor tendon tenderness Second through 5th PIP tenderness No DIP tenderness Normal nailfold capillaroscopy Bilateral elbow pain with full extension Normal range of motion of both shoulders Negative straight leg raise test bilaterally Negative Fabere test bilaterally Right ankle tenderness without swelling Multiple tender MTPs bilaterally Assessment & Plan Assessment & Plan (1) Polyarthralgia: Code(s): M25.50 - Pain in unspecified joint Category: Medical Plan: This is a 48-year-old female with history of non-Hodgkin's lymphoma s/p R-CHOP in 2007 who presents for evaluation of 1 year history of diffuse pain. On exam patient has multiple tender joints. No swollen joints. Will order comprehensive serology to screen for underlying autoimmune rheumatic disease. Check x-rays of both hands. Start prednisone therapeutic trial. Follow-up in 4-6 weeks Plan I spent 47 minutes reviewing patient's chart, evaluating patient, ordering diagnostic workup, counseling patient and documenting in the chart Orders: Orders Comprehensive Met. Panel Today M32.9 - Systemic lupus erythematosus, unspecified C Reactive Protein Today M32.9 - Systemic lupus erythematosus, unspecified Beta-2 Glycoprotein Antibody Today M32.9 - Systemic lupus erythematosus, unspecified Cardiolipin Antibodies Today M32.9 - Systemic lupus erythematosus, unspecified Complement C3 Today M32.9 - Systemic lupus erythematosus, unspecified Protein Creatinine Ratio, Ur Today M32.9 - Systemic lupus erythematosus, unspecified HLA B27 Today M45.9 - Ankylosing spondylitis of unspecified sites in spine XR hand wrist LT Today M25.50 - Pain in unspecified joint Complete Blood Count Auto Diff Today M32.9 - Systemic lupus erythematosus, unspecified Erythrocyte Sedimentation Rate Today M32.9 - Systemic lupus erythematosus, unspecified T Spot TB Today Z11.7 - Encounter for testing for latent tuberculosis infection Cyclic Citrullinated Peptide Today M25.50 - Pain in unspecified joint Lupus Anticoagulant Panel Today M32.9 - Systemic lupus erythematosus, unspecified Anti Extractable Nuclear Ag Today M32.9 - Systemic lupus erythematosus, unspecified Anti DNA DS Antibody Today M32.9 - Systemic lupus erythematosus, unspecified Complement C4 Today M32.9 - Systemic lupus erythematosus, unspecified DNA Double Stranded-Crithidia Today M32.9 - Systemic lupus erythematosus, unspecified Sjogren's Antibodies Today M32.9 - Systemic lupus erythematosus, unspecified UA w Microscopic Today M32.9 - Systemic lupus erythematosus, unspecified XR hand wrist RT Today M25.50 - Pain in unspecified joint Angiotensin Converting Enzyme Today R59.9 - Enlarged lymph nodes, unspecified Lysozyme, Serum Today R59.9 - Enlarged lymph nodes, unspecified Medications: New prednisone Take 4 tabs daily for 1 week, 3 tabs daily for 1 week, 2 tabs daily for 1 week, 1 tab daily for 1 week then stop 70 tabs 0RF Coding Level of Care Code New Pt Level 4 (75014) Diagnoses Polyarthralgia M25.50
[2023-12-09 08:27] VITALS: BP 120/72; PULSE 92; O2SAT 97; BMI 31.2
== END 2023-12-09 09:05 | disposition home or self-care (01) ==
PROVIDERS: PCP Internal Medicine; Referring Provider Internal Medicine; Visit Provider Student in an Organized Health Care Education/Training Program
DX: M25.50 Pain in unspecified joint (principal)
CPT/HCPCS: 99204

== ENCOUNTER 2023-12-09 07:45 | Outpatient (REF) | payer MEDICAID, SELFPAY ==
--- NOTE | ~2023-12-09 | XR_ITS ---
EXAMINATION: XR BILATERAL HANDS CLINICAL INFORMATION: Pain in unspecified joint. COMPARISON: None available. TECHNIQUE: 4 views of each hand. FINDINGS: RIGHT HAND: Mild degenerative changes with hypertrophic change and joint space narrowing in the first carpometacarpal and metacarpophalangeal joints. Three (3) radiopaque densities overlying the distal tuft of the third digit may be related to overlying nails. Advanced degenerative changes in the right fifth digit DIP joint with joint space narrowing and hypertrophic change. Mild degenerative changes in multiple additional IP joints. LEFT HAND: Mild degenerative changes with hypertrophic change and joint space narrowing in the first carpometacarpal and metacarpophalangeal joints. Three (3) radiopaque densities overlying the distal tuft of the third digit may be related to overlying nails. Mild degenerative changes in multiple additional IP joints. XR/XR hand wrist LT IMPRESSION: 1. Mild degenerative changes in the first carpometacarpal and metacarpophalangeal joints bilaterally. 2. Advanced degenerative changes in the right fifth digit DIP joint. 3. Mild degenerative changes in multiple additional IP joints bilaterally. 4. Three (3) radiopaque densities overlying the distal tuft of the third digit bilaterally may be related to overlying nails. 5. Recommend follow-up imaging in 10-14 days if fracture is suspected.
--- NOTE | ~2023-12-09 | XR_ITS ---
EXAMINATION: XR BILATERAL HANDS CLINICAL INFORMATION: Pain in unspecified joint. COMPARISON: None available. TECHNIQUE: 4 views of each hand. FINDINGS: RIGHT HAND: Mild degenerative changes with hypertrophic change and joint space narrowing in the first carpometacarpal and metacarpophalangeal joints. Three (3) radiopaque densities overlying the distal tuft of the third digit may be related to overlying nails. Advanced degenerative changes in the right fifth digit DIP joint with joint space narrowing and hypertrophic change. Mild degenerative changes in multiple additional IP joints. LEFT HAND: Mild degenerative changes with hypertrophic change and joint space narrowing in the first carpometacarpal and metacarpophalangeal joints. Three (3) radiopaque densities overlying the distal tuft of the third digit may be related to overlying nails. Mild degenerative changes in multiple additional IP joints. XR/XR hand wrist RT IMPRESSION: 1. Mild degenerative changes in the first carpometacarpal and metacarpophalangeal joints bilaterally. 2. Advanced degenerative changes in the right fifth digit DIP joint. 3. Mild degenerative changes in multiple additional IP joints bilaterally. 4. Three (3) radiopaque densities overlying the distal tuft of the third digit bilaterally may be related to overlying nails. 5. Recommend follow-up imaging in 10-14 days if fracture is suspected.
== END 2023-12-09 07:46 | disposition home or self-care (01) ==
LOC: HO.XRAY 07:45
PROVIDERS: PCP Internal Medicine; Visit Provider Student in an Organized Health Care Education/Training Program
DX: M25.50 Pain in unspecified joint (principal); M32.9 Systemic lupus erythematosus, unspecified
CPT/HCPCS: 73110; 73130; 99202

== ENCOUNTER 2023-12-09 09:22 | Outpatient (REF) | payer MEDICAID, SELFPAY ==
[2023-12-09 09:46] LABS: MANUAL DIFF FLAG NO
[2023-12-09 10:12] LABS: Basophils Absolute Auto 0.1 X10*3/uL (0.0-0.2); Basophils Percent Auto 1.4 % (0-2); Eosinophils Absolute Auto 0.2 X10*3/uL (0.0-0.4); Eosinophils Percent Auto 3.1 % (0-4); Hematocrit 37.4 % (37.0-47.0); Hemoglobin 12.4 g/dl (12.0-16.0); Imm Gran Abs Auto 0.01 X10*3/uL (0.00-0.03); Imm Gran Pct Auto 0.2 % (0.0-0.4); Lymphocytes Absolute Auto 1.9 X10*3/uL (1.2-4.9); Lymphocytes Percent Auto 37.1 % (20-40); Mean Corpuscular HGB Conc 33.2 g/dl (31.0-35.0); Mean Corpuscular Hemoglobin 29.2 pg (27.0-33.0); Mean Corpuscular Volume 88.2 fL (80.0-98.0); Mean Platelet Volume 10.2 fL (9.4-12.3); Monocytes Absolute Auto 0.4 X10*3/uL (0.1-1.2); Monocytes Percent Auto 8.1 % (2-11); Neutrophils Absolute Auto 2.6 x10*3/uL (2.0-8.3); Neutrophils Percent Auto 50.1 % (45-73); Platelet Count 264 X10*3/uL (160-400); Red Blood Count 4.24 X10*6/uL (4.20-5.50); Red Cell Distribution Width 14.5 % (11.0-16.0); White Blood Count 5.1 X10*3/uL (4.8-10.8)
[2023-12-09 11:01] LABS: Erythrocyte Sedimentation Rate 4 MM/HR (0-20)
[2023-12-09 11:18] LABS: Alanine Aminotransferase 12 U/L (0-31); Albumin Level 4.3 g/dL (3.5-5.0); Alkaline Phosphatase 74 U/L (39-117); Anion Gap 11 (12-20); Aspartate Amino Transferase 11 U/L (5-31); Bilirubin Total 1.4 mg/dL (0.0-1.0); C Reactive Protein 0.27 mg/dL (< or = 0.50); Calcium 9.5 mg/dL (8.4-10.2); Carbon Dioxide 29 mmol/L (22-29); Chloride 108 mmol/L (96-108); Estimated Glomerular Filt Rate > 60; Glucose Random 95 mg/dL (60-115); Potassium 3.6 mmol/L (3.3-5.1); Sodium 144 mmol/L (135-145); Total Protein 6.4 g/dL (6.5-8.0)
[2023-12-09 11:50] LABS: Blood Urea Nitrogen 14 mg/dL (9-16)
[2023-12-09 12:04] LABS: Creatinine Urine 186.93 mg/dL; Protein/Creatinine Ratio, Ur 0.05 (<0.2); Total Protein Urine Random 10 mg/dL (<12)
[2023-12-09 13:11] LABS: Anion Gap 13 (12-20); Blood Urea Nitrogen 15 mg/dL (9-16); Calcium 9.5 mg/dL (8.4-10.2); Carbon Dioxide 29 mmol/L (22-29); Chloride 106 mmol/L (96-108); Cholesterol 179 mg/dL (<200); Estimated Glomerular Filt Rate > 60; Glucose Random 98 mg/dL (60-115); HDL Cholesterol 55 mg/dL (>40); LDL Cholesterol Calculated 97 mg/dL (<100); Potassium 3.6 mmol/L (3.3-5.1); Sodium 144 mmol/L (135-145); Triglycerides 138 mg/dL (<150)
[2023-12-09 13:13] LABS: Free T4 (Free Thyroxine) 0.95 ng/dL (0.71-1.85); T4 Thyroxine 7.3 ug/dL (4.5-12.0); TSH reflex Free T4 1.63 uIU/mL (0.32-4.0)
[2023-12-09 14:30] LABS: Reflex LDLD? No
[2023-12-10 23:34] LABS: Complement C3 134 mg/dL (83-193)
[2023-12-11 05:43] LABS: Triiodothyronine T3 Free 3.3 pg/mL (2.3-4.2); Triiodothyronine T3 Total 96 ng/dL (76-181)
[2023-12-11 20:18] LABS: Cardiolipin IgG Ab <2.0 GPL-U/mL; Cardiolipin IgM Ab <2.0 MPL-U/mL
[2023-12-12 08:18] LABS: TS Negative Control Passed; TS Panel A 0; TS Panel B 0; TS Positive Control Passed; TSpotTB Negative (Negative)
[2023-12-12 12:35] LABS: Thyroglobulin Antibodies <1
[2023-12-12 20:58] LABS: Anti DNA DS Antibody <1 IU/mL; Antibody to SS-A Antigen <1.0 NEG AI (<1.0 NEG); Antibody to SS-B Antigen <1.0 NEG AI (<1.0 NEG); SM/Ribonucleoprotein Ab <1.0 NEG AI (<1.0 NEG); Smith Protein <1.0 NEG AI (<1.0 NEG)
[2023-12-14 13:59] LABS: DNAds, Crithidia Antibody Negative (Negative)
[2023-12-15 04:16] LABS: PTT (LAC) Screen 35 sec (<=40)
[2023-12-15 11:13] LABS: Cyclic Citrullinated Peptide <16 UNITS
[2023-12-15 21:28] LABS: HLA B27 Negative (Negative)
[2023-12-16 22:18] LABS: Beta-2 Glycoprotein IgA <2.0 U/mL (<20.0); Beta-2 Glycoprotein IgG <2.0 U/mL (<20.0); Beta-2 Glycoprotein IgM <2.0 U/mL (<20.0)
== END 2023-12-09 09:23 | disposition home or self-care (01) ==
LOC: HO.LAB 09:22
PROVIDERS: Internal Medicine; Visit Provider Student in an Organized Health Care Education/Training Program
DX: Z11.7 Encounter for testing for latent tuberculosis infection (principal); M32.9 Systemic lupus erythematosus, unspecified; M45.9 Ankylosing spondylitis of unspecified sites in spine; M25.50 Pain in unspecified joint; C85.93 Non-Hodgkin lymphoma, unspecified, intra-abdominal lymph nodes; Z86.39 Personal history of other endocrine, nutritional and metabolic disease
CPT/HCPCS: 36415; 73110; 73130; 80048; 80053; 80061; 81001; 82570; 84156; 84436; 84439; 84443; 84480; 84481; 85025; 85597; 85598; 85613; 85652; 85730; 86140; 86146; 86147; 86160; 86200; 86225; 86235; 86255; 86481; 86800; 86812; 99202

== ENCOUNTER 2023-12-09 11:13 | Outpatient (REF) | payer MEDICAID, SELFPAY ==
[2023-12-09 13:42] LABS: Appearance Urine Turbid; Color Urine Yellow; Glucose Urine UA Negative (Negative); Leukocyte Esterase Urine Negative (Negative); Nitrite Urine Negative (Negative); Specific Gravity - Urine >= 1.030 (1.005-1.025); UMIC TRIGGER UA YES; Urine Blood Moderate (2+) (Negative); Urine Ketones Negative (Negative); Urine Protein Negative (Neg-Trace)
[2023-12-09 13:47] LABS: Bacteria Urine Trace (None Seen); WBC Urine 0-5 /HPF (0-5)
== END 2023-12-09 11:14 | disposition home or self-care (01) ==
LOC: HO.HHCL 11:13
PROVIDERS: Visit Provider Student in an Organized Health Care Education/Training Program
DX: M32.9 Systemic lupus erythematosus, unspecified (principal)
CPT/HCPCS: 81001

== ENCOUNTER 2024-01-19 14:59 | Outpatient (AMB) | payer MEDICAID, SELFPAY ==
--- NOTE | 2024-01-19 15:05 | A.OFFVIS_ITS ---
Vital Signs 01/19/24 15:10 Height 5 ft 2 in Weight 175 lb 7.807 oz BMI 32.1 BP 115/72 Blood Pressure Location Rt brachial Position Sitting Respiration 16 Pulse 97 Pulse Source Pulse Oximeter Pulse Oximetry (%) 98 Oxygen Delivery Method Room Air Intake Visit Reasons: polyarthralgia/CM Intake Note: Patient presents for polyarthralgia. Corrosion Control Engineer Required: Yes Corrosion Control Engineer Services: Corrosion Control Engineer Present Corrosion Control Engineer Name: Olga Emerson Allergies No Known Allergies Allergy (Verified 01/19/24 15:09) Medication List - Last Reconciled 01/19/24 by Romelia Yusuf MD ibuprofen 800 mg PO Q8H PRN levothyroxine (Tirosint) 13 mcg PO QAM tramadol 50 mg PO Q6H PRN HPI Comments Details: Patient returns for follow-up after completion of her diagnostic work up. She stated that prednisone provided about 30% improvement. States that she continues to have pain in her hands especially with activity at work. She states that her job is labor-intensive with her hands. Initial hx: This is a 48-year-old female who presents for evaluation of multiple joint pain. Of note patient has history of non-Hodgkin's lymphoma which was treated with R-CHOP back in 2007. She was recently re-evaluated by Dr. Bennett and deemed not to have recurrence of malignancy. She states that over the last year she has been having pain in her hands and feet. She has morning stiffness of her hands lasting 20-30 minutes. She takes ibuprofen as needed for her joint pain 4 to 5 times a week. She states that she has had chronic back pain for a long time and she takes tramadol only as needed. 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 This started approximately 9 months ago. Before that she used to work for [email or web address]. She denies any recent weight loss, denies any fevers or skin rashes. She is unaware of any family history of an autoimmune rheumatic disease. Denies any history of DVT/PE. She had 4 pregnancies and 4 children. 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 Female Reproductive History Menstrual Age of Menarche: 9 Total pregnancies: 4 Number of Living Children: 4 Review of Systems Musc Reports arthralgias, Denies joint swelling and Reports stiffness Physical Exam Vital Signs: Last Vital Signs Pulse 97 01/19/24 15:10 Resp 16 01/19/24 15:10 BP 115/72 01/19/24 15:10 Pulse Ox 98 01/19/24 15:10 Oxygen Delivery Method Room Air 01/19/24 15:10 BMI result Body Mass Index 32.1 Const General: cooperative, healthy appearing and comfortable Nutritional Appearance: overweight Orientation/consciousness: patient oriented x3 Limitations: no limitations HEENT Head: Yes normocephalic and Yes atraumatic Resp Effort & Inspection: normal respiratory effort and able to speak in complete sentences Neuro General: patient oriented x3 Extrem Other: Bilateral wrist tenderness and pain with full flexion and extension Left third 4th and 5th flexor tendon tenderness Left 5th DIP tenderness Right wrist pain with flexion-extension but no tenderness or swelling Right 3rd and 4th flexor tendon tenderness Few tender DIPs and PIP is right hand with no swelling Normal nailfold capillaroscopy Bilateral elbow pain with full extension Normal range of motion of both shoulders Negative straight leg raise test bilaterally Negative Fabere test bilaterally Right ankle tenderness without swelling Few tender MTPs bilaterally Assessment & Plan Assessment & Plan (1) Polyarthralgia: Code(s): M25.50 - Pain in unspecified joint Category: Medical Plan: This is a 48-year-old female with history of non-Hodgkin's lymphoma s/p R-CHOP in 2007 who presents for evaluation of 1 year history of diffuse joint pain. On exam patient has multiple tender joints. No swollen joints. Comprehensive serology and inflammatory markers are normal. Bilateral hand x-rays consistent with degenerative arthritis. No significant response to prednisone. It seems that patient's symptoms seem to have started when she started her current job 8- 9 months ago. 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 At this time her symptoms are mechanical and degenerative in nature, can take Tylenol regularly, use NSAIDs when needed. Re-evaluate in 1 year Plan I spent 17 minutes reviewing patient's chart, evaluating patient, counseling patient and documenting in the chart Coding Level of Care Code Est Pt Level 3 (89281) Diagnoses Polyarthralgia M25.50
[2024-01-19 15:10] VITALS: BP 115/72; PULSE 97; RESP 16; O2SAT 98; BMI 32.1
== END 2024-01-19 15:41 | disposition home or self-care (01) ==
PROVIDERS: PCP Internal Medicine; Referring Provider Internal Medicine; Visit Provider Student in an Organized Health Care Education/Training Program
DX: M25.50 Pain in unspecified joint (principal)
CPT/HCPCS: 99213

== ENCOUNTER → 2024-01-19 14:59 | Outpatient (BNVA) | payer MEDICAID, SELFPAY | PROVIDERS: PCP Internal Medicine; Visit Provider Student in an Organized Health Care Education/Training Program | DX: M25.50 Pain in unspecified joint (principal) | CPT/HCPCS: 99212 ==

== ENCOUNTER 2024-03-15 19:12 | Emergency (ER) | payer MEDICAID, SELFPAY ==
[2024-03-15 19:26] VITALS: BP 133/73; PULSE 87; RESP 18; TEMP 36; O2SAT 100; BMI 26.6
--- NOTE | 2024-03-15 19:29 | ED.FEMALEGU ---
HPI - Female Genitourinary General Chief complaint: General Medical Stated complaint: personal Time Seen by Provider: 03/15/24 21:46 Source: patient Mode of arrival: ambulatory Limitations: language barrier History of Present Illness ED Provider: Dr. Silverman HPI Narrative: Patient with dysuria, vaginal odor after being with her sexual partner. No history of GC/chlamydia but has had bacterial vaginosis in the past. MD elicited complaint: dysuria Onset (ago): day(s) Severity: mild Related Data Home Medications ?Medication ?Instructions ?Recorded ?Confirmed levothyroxine 13 mcg capsule 13 mcg PO QAM 11/12/23 02/20/24 (Tirosint) ibuprofen 400 mg tablet 800 mg PO Q8H PRN moderate pain 12/09/23 02/20/24 tramadol 50 mg tablet 50 mg PO Q6H PRN pain 12/09/23 02/20/24 Previous Rx's ?Medication ?Instructions ?Recorded metronidazole 1 % topical gel 1 appl topical DAILY 5 days #5 03/15/24 (Metrogel) applicators Allergies Allergy/AdvReac Type Severity Reaction Status Date / Time No Known Allergies Allergy Verified 03/15/24 19:30 Review of Systems Review of Systems: Yes all other systems are reviewed and are negative Neurologic: Denies Sensory deficit (Neuro) [facility] Past Medical History Medical History Non-Hodgkins lymphoma Thyroid disease Surgical History Hx of lymph node excision (11/12/23) Family History Family History Mother Arthritis Social History Social History Household Members: Children Alcohol intake: current Alcohol intake frequency: holidays/special occasions only Patient Tobacco Use Status: Never used Tobacco Advance Directives: No Advance Directives Information Provided: No Do you have a plan to hurt others: No Plan service: No Current occupational status: employed 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 Physical Exam Vital Signs: Vital Signs: Last Vital Signs Temp 98.3 F 03/15/24 21:58 Pulse 80 03/15/24 21:58 Resp 16 03/15/24 21:58 BP 141/72 H 03/15/24 21:58 Pulse Ox 98 03/15/24 21:58 O2 Del Method Room Air 03/15/24 21:58 BMI result Body Mass Index 26.6 Const: General: healthy appearing Nutritional Appearance: average body habitus Orientation/consciousness: oriented to person and patient oriented x3 Limitations: no limitations HEENT: Head: Yes normal to inspection Ears: external ears normal General nose exam: Normal external nose present Mouth: Normal oral and palatal mucosa present and oropharynx normal Throat: Yes posterior oropharynx normal Eyes: General: appearance normal, both eyes and all related structures Neck: Other: supple Neck: Yes normal visual inspection Chest: Chest palpation & inspection: normal inspection of the chest Resp: Auscultation: clear to auscultation bilaterally Cardio: Jugular venous distension: no JVD Rate: regular rate Rhythm: regular rhythm Heart sounds: S1 normal heart sound present and S2 normal heart sound present GI: Inspection: Yes normal to inspection Palpation (GI): Soft to palpation, nontender and No hepatosplenomegaly present Auscultation: normal bowel sounds : Other: no lesions to external labia, normal vaginal canal, normal cervix, slight white discharge, no discharge from os, no CMT General: Yes no CVA tenderness Back/Spine/Pelvis: Back: no CVA tenderness Skin: General skin exam: no rashes or lesions noted Neuro: General: oriented to person and patient oriented x3 Cranial nerves: Yes CN's II-XII intact bilaterally Motor exam (neuro): 5/5 motor strength present throughout Sensory Exam: No Sensory deficit (Neuro) Extrem: General: Yes normal to inspection Psych: Appearance: grossly normal Course Course Course Narrative: This is a Rapid Medical Examination (RME) performed by Noemi Roland PA-C in triage. Full HPI, ROS, assessment and treatment plan per primary provider in the Main ED. 48 yo female here for eval of dysuria since 0800 this morning. assoc lower abd cramping, nausea, and right flank pain. hx of UTI a few mos ago, feels similar. admits to concern for STI. has unprotected intercourse with current partnet. admits to hx of genital herpes, recently took valacyclovir. + no CVAT. pelvic exam deferred. Plan: labs, UA, ct/ng. requesting pelvic exam. Reevaluation(s) Reevaluation #1: Will treat patient for bacterial vaginosis, no evidence of PID Time: 22:34 Medications Administered Discontinued Medications Generic Name Dose Route Start Last Admin Trade Name Ray PRN Reason Stop Dose Admin Metronidazole 1 gm 03/15/24 22:22 03/15/24 22:31 Metronidazole 0.75 % Vaginal Gel 70 Gm Tube VAGINAL 03/15/24 22:23 1 gm ONCE ONE Administration Medical Decision Making Differential Diagnosis Differential Diagnoses: The differential diagnosis associated with the presentation includes (UTI, GC, chlamydia, [place], trichomonas, bacterial vaginosis, , ectopic were all considered) Admission/Observation Consideration of admission/observation: Escalation of care including admission/observation considered (upon arrival admission was considered) Lab Data 03/15/24 20:32 03/15/24 20:32 Labs: Lab Results 03/15/24 03/15/24 Range/Units 20:32 20:35 WBC 5.1 (4.8-10.8) X10*3/uL RBC 4.26 (4.20-5.50) X10*6/uL Hgb 12.8 (12.0-16.0) g/dl Hct 37.6 (37.0-47.0) % MCV 88.3 (80.0-98.0) fL MCH 30.0 (27.0-33.0) pg MCHC 34.0 (31.0-35.0) g/dl RDW 13.1 (11.0-16.0) % Plt Count 239 (160-400) X10*3/uL MPV 10.5 (9.4-12.3) fL Immature Gran % (Auto) 0.4 (0.0-0.4) % Neut % (Auto) 50.4 (45-73) % Lymph % (Auto) 36.4 (20-40) % [place] % (Auto) 9.4 (2-11) % Eos % (Auto) 2.2 (0-4) % Baso % (Auto) 1.2 (0-2) % Lymph # (Auto) 1.9 (1.2-4.9) X10*3/uL [place] # (Auto) 0.5 (0.1-1.2) X10*3/uL Eos # (Auto) 0.1 (0.0-0.4) X10*3/uL Baso # (Auto) 0.1 (0.0-0.2) X10*3/uL Abs Immat Gran (auto) 0.02 (0.00-0.03) X10*3/uL Absolute Neuts (auto) 2.6 (2.0-8.3) x10*3/uL Absolute Nucleated RBC 0.000 (0.0-0.012) X10*3/uL Nucleated RBC % (auto) 0.0 (0.0-0.2) /100WBC Sodium 145 (135-145) mmol/L Potassium 3.9 (3.3-5.1) mmol/L Chloride 109 H (96-108) mmol/L Carbon Dioxide 28 (22-29) mmol/L Anion Gap 12 (12-20) BUN 20 H (9-16) mg/dL Creatinine 0.72 (0.5-1.4) mg/dL Estim Creat Clear Calc 97.8 Estimated GFR > 60 Random Glucose 97 (60-115) mg/dL Calcium 9.4 (8.4-10.2) mg/dL Magnesium 2.0 (1.6-2.6) mg/dL Total Bilirubin 1.1 H (0.0-1.0) mg/dL AST 13 (5-31) U/L ALT 14 (0-31) U/L Alkaline Phosphatase 83 (39-117) U/L Total Protein 6.3 L (6.5-8.0) g/dL Albumin 4.3 (3.5-5.0) g/dL Beta HCG, Quant < 2 mIU/mL Urine Color Yellow Urine Appearance Clear Urine pH 5.5 (5.0-9.0) Ur Specific [place] 1.025 (1.005-1.025) Urine Protein Trace (Neg-Trace) mg/dL Urine Glucose (UA) Negative (Negative) mg/dL Urine Ketones Negative (Negative) mg/dL Urine Blood Large (3+) H (Negative) Urine Nitrite Negative (Negative) Ur Leukocyte Esterase Negative (Negative) Urine RBC 3-5 H (0-2) /HPF Urine WBC 0-5 (0-5) /HPF Ur Squamous Epith Cells 0-2 (0-2) /HPF Calcium Oxalate Crystal Present Urine Bacteria None Seen (None Seen) Hyaline Casts 0-2 (0-2) /LPF Tests considered The following testing was considered but not selected: pelvic US considered but patient with no CMT, no fever, no elevated WBC Discharge Plan Discharge Clinical Impression: Dysuria, Bacterial vaginosis Patient Disposition: Home, Self-Care Instructions: Bacterial Vaginosis (ED) Prescriptions: New metronidazole [Metrogel] 1 % gel 1 appl topical DAILY 5 Days Qty: 5 0RF No Action levothyroxine [Tirosint] 13 mcg capsule 13 mcg PO QAM tramadol 50 mg tablet 50 mg PO Q6H PRN (Reason: pain) ibuprofen 400 mg tablet 800 mg PO Q8H PRN (Reason: moderate pain) Referrals: Merissa Arthur MD [Primary Care Provider] - 5 days Print Language: Romanian
[2024-03-15 20:42] LABS: MANUAL DIFF FLAG NO
[2024-03-15 20:44] LABS: Appearance Urine Clear; Color Urine Yellow; Glucose Urine UA Negative (Negative); Leukocyte Esterase Urine Negative (Negative); Nitrite Urine Negative (Negative); PH 5.5 (5.0-9.0); Specific Gravity - Urine 1.025 (1.005-1.025); UMIC TRIGGER UACC YES; Urine Blood Large (3+) (Negative); Urine Ketones Negative (Negative); Urine Protein Trace mg/dL (Neg-Trace)
[2024-03-15 20:54] LABS: Bacteria Urine None Seen (None Seen); Calcium Oxalate Crystals Urine Present; Hyaline Casts Urine 0-2 /LPF (0-2); Squamous Epithelial Cell Urine 0-2 /HPF (0-2); WBC Urine 0-5 /HPF (0-5)
[2024-03-15 21:04] LABS: Alanine Aminotransferase 14 U/L (0-31); Albumin Level 4.3 g/dL (3.5-5.0); Alkaline Phosphatase 83 U/L (39-117); Anion Gap 12 (12-20); Aspartate Amino Transferase 13 U/L (5-31); Bilirubin Total 1.1 mg/dL (0.0-1.0); Blood Urea Nitrogen 20 mg/dL (9-16); Calcium 9.4 mg/dL (8.4-10.2); Carbon Dioxide 28 mmol/L (22-29); Chloride 109 mmol/L (96-108); Creatinine Clr Calc Pharmacy 97.8; Estimated Glomerular Filt Rate > 60; Glucose Random 97 mg/dL (60-115); Potassium 3.9 mmol/L (3.3-5.1); Sodium 145 mmol/L (135-145); Total Protein 6.3 g/dL (6.5-8.0)
[2024-03-15 21:08] LABS: HCG Quantitative < 2 mIU/mL
[2024-03-15 21:14] LABS: Basophils Absolute Auto 0.1 X10*3/uL (0.0-0.2); Basophils Percent Auto 1.2 % (0-2); Eosinophils Absolute Auto 0.1 X10*3/uL (0.0-0.4); Eosinophils Percent Auto 2.2 % (0-4); Hematocrit 37.6 % (37.0-47.0); Hemoglobin 12.8 g/dl (12.0-16.0); Imm Gran Abs Auto 0.02 X10*3/uL (0.00-0.03); Imm Gran Pct Auto 0.4 % (0.0-0.4); Lymphocytes Absolute Auto 1.9 X10*3/uL (1.2-4.9); Lymphocytes Percent Auto 36.4 % (20-40); Mean Corpuscular Volume 88.3 fL (80.0-98.0); Mean Platelet Volume 10.5 fL (9.4-12.3); Monocytes Absolute Auto 0.5 X10*3/uL (0.1-1.2); Monocytes Percent Auto 9.4 % (2-11); Neutrophils Absolute Auto 2.6 x10*3/uL (2.0-8.3); Neutrophils Percent Auto 50.4 % (45-73); Platelet Count 239 X10*3/uL (160-400); Red Blood Count 4.26 X10*6/uL (4.20-5.50); Red Cell Distribution Width 13.1 % (11.0-16.0); White Blood Count 5.1 X10*3/uL (4.8-10.8)
[2024-03-15 21:58] VITALS: BP 141/72; PULSE 80; RESP 16; TEMP 36.8; O2SAT 98
[2024-03-15] MEDS: metroNIDAZOLE 0.75 % Vaginal Gel 70 GM TUBE VAGINAL (22:31)
[2024-03-15 23:04] VITALS: BP 152/78; PULSE 58; RESP 16; TEMP 36.6; O2SAT 100
[2024-03-16 03:47] LABS: CT PCR NOT DETECTED (Not Detect.); NG PCR NOT DETECTED (Not Detect.)
[2024-03-16 10:55] LABS: Bacterial Vaginosis PCR NEGATIVE (Negative); Candida Group PCR NOT DETECTED (Not Detect); Candida glab krusei PCR NOT DETECTED (Not Detect); Trichomonas vaginalis PCR NOT DETECTED (Not Detect)
== END 2024-03-15 23:04 | disposition home or self-care (01) ==
PROVIDERS: Physician Assistant Medical; Emergency Provider Emergency Medicine; PCP Internal Medicine
DX: N76.0 Acute vaginitis (principal); R30.0 Dysuria; Z20.2 Contact with and (suspected) exposure to infections with a predominantly sexual mode of transmission; Z79.899 Other long term (current) drug therapy
CPT/HCPCS: 0352U; 36415; 80053; 81001; 83735; 84702; 85025; 87491; 87591; 99283